=== PATIENT | male | born 1960 | race African-American/Black ===

== ENCOUNTER → 2017-08-27 | Outpatient (CLI) | payer OTHER, SELFPAY ==
[~2017-08-27] MED LIST: ASPIRIN81 M2 PO; CHANTIX1 MG PO; DUONEB 2.5-0.5 M3 ML INH; FLOVENT HFA 1110 MCG IH; GLUCOPHAGE1000 MG PO; GLYBURIDE 5 MG T5 M1 PO; LISINOPRIL10 MG PO; NEURONTIN 300M300 M2 PO; NITROSTAT0.4 MG SL; PROAIR HFA8.5 GM IH; ULTRAM 50MG TAB50 MG PO; ZOCOR5 MG PO
== END ==
LOC: ULTRA 08:19
DX: M79.671 Pain in right foot (principal); M79.674 Pain in right toe(s)

== ENCOUNTER → 2017-09-24 | Outpatient (CLI) | payer OTHER, SELFPAY | LOC: RAD 09:35 | DX: J45.40 Moderate persistent asthma, uncomplicated (principal); R63.4 Abnormal weight loss; Z85.46 Personal history of malignant neoplasm of prostate ==

== ENCOUNTER 2018-03-10 08:06 | Emergency (ER) | payer OTHER ==
[~2018-03-10] VITALS: Ht 185.4 cm; Wt 99.8 kg
[2018-03-10] MEDS ORDERED: NORCO 5-325 TA1 EACH PO (08:49)
[2018-03-10 09:18] VITALS: BP 140/78
== END 2018-03-10 09:16 | disposition home or self-care (01) ==
LOC: ER 08:06
DX: I73.9 Peripheral vascular disease, unspecified (principal); M79.672 Pain in left foot; E11.9 Type 2 diabetes mellitus without complications; I10 Essential (primary) hypertension; J45.909 Unspecified asthma, uncomplicated; I25.10 Atherosclerotic heart disease of native coronary artery without angina pectoris; E78.00 Pure hypercholesterolemia, unspecified